=== PATIENT | male | born 1990 | race Caucasian/White ===

== ENCOUNTER 2018-05-07 16:33 | Emergency (ER) | payer SELFPAY ==
[~2018-05-07] VITALS: Ht 182.9 cm; Wt 77.3 kg
[2018-05-07 16:37] VITALS: BP 128/80; TEMP 98.4
[2018-05-07] MEDS ORDERED: NORCO 325 MG-51 TAB PO (17:10)
[2018-05-07 17:55] VITALS: PULSE 87
== END 2018-05-07 17:56 | disposition home or self-care (01) ==
LOC: COL.ER 16:33
DX: S69.91XA Unspecified injury of right wrist, hand and finger(s), initial encounter (principal); F12.90 Cannabis use, unspecified, uncomplicated; F17.210 Nicotine dependence, cigarettes, uncomplicated; V00.131A Fall from skateboard, initial encounter
CPT/HCPCS: Q4021